=== PATIENT | male | born 1970 | race Caucasian/White ===

== ENCOUNTER 2019-12-04 07:22 | Emergency (ER) | payer SELFPAY ==
[~2019-12-04] VITALS: Ht 170.2 cm; Wt 90.5 kg
[2019-12-04] MEDS ORDERED: IV NORMAL SALINE 1,000ML 1,000 ML IV ONE (07:30)
[2019-12-04] MEDS ORDERED: ASPIRIN 325 MG TABLET PO ONE (07:30)
--- NOTE | 2019-12-04 07:36 | PHYS DOC ---
Past History Past Medical History: CT Past Surgical History: No Surgical History Smoking: Non-smoker Alcohol Use: None Drug Use: Marijuana General Adult EDM: Chief Complaint: SOA HPI: HPI: 49-year-old male presents with report of waking this morning with shortness of air and chest pressure. Reports radiation to his back. Reports has had a similar episode 6 days ago which self resolved. Reports his spouse became concerned and made him present to the ER for further evaluation. Patient does report cardiac risk factors of prior CT (denies stent placement) and significant family history of CAD. Denies fever or chills. Denies cough. Denies pleuritic pain. Denies leg swelling or calf tenderness. Denies history or family history of PE/DVT. Denies trauma. Denies known exposure to COVID-19. Review of Systems: Review of Systems: Constitutional: Denies fever or chills Eyes: Denies redness or eye pain HENT: Denies nasal congestion or sore throat Respiratory: Denies cough; reports shortness of breath Cardiovascular: Reports chest pain; denies palpitations GI: Denies abdominal pain, nausea, or vomiting : Denies dysuria or hematuria Musculoskeletal: Denies back pain or joint pain Integument: Denies rash or skin lesions Neurologic: Denies headache, focal weakness or sensory changes Complete systems were reviewed and found to be within normal limits, except as documented in this note. Heart Score: HEART Score for Chest Pain: HEART Score for Chest Pain Response (Comments) Value History Moderately Suspicious 1 ECG Normal 0 Age >45 - < 65 1 Risk Factors 1 or 2 Risk Factors 1 Troponin < Normal Limit 0 Total 3 Risk Factors: Risk Factors: DM, Current or recent (<one month) smoker, HTN, HLP, family history of CAD, obesity. Risk Scores: Score 0 - 3: 2.5% MACE over next 6 weeks - Discharge Home Score 4 - 6: 20.3% MACE over next 6 weeks - Admit for Clinical Observation Score 7 - 10: 72.7% MACE over next 6 weeks - Early Invasive Strategies Current Medications: Current Meds: Current Medications Medications (Trade) Dose Ordered Sig/Sergio Start Time Stop Time Status Last Admin Dose Admin Aspirin (Pa Aspirin) 325 mg 1X ONCE 12/04/19 07:30 12/04/19 07:31 UNV Sodium Chloride 1,000 ml @ 1,000 mls/hr 1X ONCE 12/04/19 07:30 12/04/19 08:29 UNV Physical Exam: PE: Constitutional: Well developed, well nourished, no acute distress, non-toxic appearance HENT: Normocephalic, atraumatic Eyes: Conjunctiva normal, no discharge Neck: Normal range of motion, no tenderness, supple Lungs & Thorax: No respiratory distress, equal chest rise and fall Abdomen: Soft, no tenderness Skin: Warm, dry, no erythema, no rash Extremities: No tenderness, ROM intact, no edema Neurologic: Alert and oriented X 3, no focal deficits noted Psychologic: Affect normal, judgment normal EKG: EKG: @0732 NSR at 67bpm, J point elevation II and aVF, no ST depressions, Q wave II and aVF. Radiology/Procedures: Radiology/Procedures: PROCEDURE: CHEST PA & LATERAL Chest radiograph 12/04/2019 8:45 AM INDICATION: Chest pain COMPARISON: None available TECHNIQUE: Frontal and lateral views of the chest are provided. FINDINGS: The cardiomediastinal silhouette is within normal limits. There are no pleural effusions. There is no pulmonary vascular congestion. There is no pneumothorax. The lungs are clear. No significant osseous abnormality is identified. IMPRESSION: No acute cardiopulmonary process. Electronically signed by: Melissa Anderson MD (12/04/2019 10:00 AM) [id number] Course & Med Decision Making: Course & Med Decision Making Pertinent Labs and Imaging studies reviewed. (See chart for details) Patient presents with shortness of breath and chest pain which started this morning. Reports some cardiac risk factors of family history and prior CT. EKG stable. Aspirin provided. Labs obtained and posted to chart. Initial troponin negative. D-dimer also WNL. HEART score 3 CXR without acute process. Denies any further chest pain. Repeat troponin also WNL. Patient stable for discharge with outpatient follow-up with PCP/cardiology. Cardiology referral provided. Discussed findings and plan with patient, who acknowledge understanding and agreement. Sun Disclaimer: Sun Disclaimer: This electronic medical record was generated, in whole or in part, using a voice recognition dictation system. Departure Departure: Impression: Primary Impression: Chest pain Qualified Codes: R07.9 - Chest pain, unspecified Disposition: 01 HOME/RESIDENCE PRIOR TO ADM Condition: STABLE Referrals: [facility] (PCP) JORGE GRIER MD Patient Instructions: Chest Pain (Nonspecific), [id number] Scripts Famotidine (PEPCID) 20 Mg Tablet 1 TAB PO BID for gastritis, #20 TAB Prov: JULIO MASSEY DO 12/04/19 Justification of Admission: Justification of Admission: Justification of Admission Dx: N/A JULIO MASSEY DO Dec 04, 2019 07:36
--- NOTE | 2019-12-04 07:43 | EKG ---
[address] [address] Test Date: 2019-12-04 Test Time: 07:32:44 Pat Name: LOWELL DORSEY Department: Room: Gender: M Metal [employer]: : 1970 Requested By: JULIO MASSEY Order Number: [id number] Reading MD: Woody Garnett MD Measurements Intervals [place]aly Rate: 67 P: 0 ID: [id number] QRS: 53 QRSD: 84 T: 34 QT: 392 QTc: 417 Interpretive Statements SINUS RHYTHM Electronically Signed On 12-05-2019 11:23:14 CDT by Woody Garnett MD
[2019-12-04] MEDS ORDERED: FAMOTIDINE 20 MG/2 ML VIAL IVP ONE (07:45)
[2019-12-04 08:07] LABS: BASO % 1 % (0-3); EOS # 0.1 x10^3/uL (0.0-0.7); EOS % 3 % (0-3); HEMATOCRIT 42.9 % (39.0-53.0); HEMOGLOBIN 15.3 g/dL (13.0-17.5); LYMPH # 1.1 x10^3/uL (1.0-4.8); LYMPH % 25 % (24-48); MEAN CORPUSCULAR HEMOGLOBIN 34 pg (25-35); MEAN CORPUSCULAR HGB CONC 36 g/dL (31-37); MEAN CORPUSCULAR VOLUME 95 fL (79-100); MONO # 0.5 x10^3/uL (0.0-1.1); MONO % 12 % (0-9); NEUT # 2.6 x10^3uL (1.8-7.7); NEUT % 59 % (31-73); PLATELET COUNT 186 x10^3/uL (140-400); RED BLOOD COUNT 4.55 x10^6/uL (4.30-5.70); RED CELL DISTRIBUTION WIDTH 13.8 % (11.5-14.5); WHITE BLOOD COUNT 4.4 x10^3/uL (4.0-11.0)
[2019-12-04 08:18] LABS: CALCIUM 8.7 mg/dL (8.5-10.1); CREATININE 1.2 mg/dL (0.7-1.3); GFR 63.8; POTASSIUM 3.5 mmol/L (3.5-5.1)
[2019-12-04 08:47] LABS: ALBUMIN 3.7 g/dL (3.4-5.0); ALBUMIN/GLOBULIN RATIO 1.1 (1.0-1.7); MAGNESIUM 2.2 mg/dL (1.8-2.4); TOTAL BILIRUBIN 0.9 mg/dL (0.2-1.0)
--- NOTE | 2019-12-04 10:03 | RAD ---
Chest radiograph 12/04/2019 8:45 AM INDICATION: Chest pain COMPARISON: None available TECHNIQUE: Frontal and lateral views of the chest are provided. FINDINGS: The cardiomediastinal silhouette is within normal limits. There are no pleural effusions. There is no pulmonary vascular congestion. There is no pneumothorax. The lungs are clear. No significant osseous abnormality is identified. IMPRESSION: No acute cardiopulmonary process. Electronically signed by: Melissa Anderson MD (12/04/2019 10:00 AM) [id number]
[2019-12-04] MEDS ORDERED: FAMO-63 PO (10:07)
[2019-12-04 11:18] VITALS: BP 110/72
== END 2019-12-04 11:24 | disposition home or self-care (01) ==
LOC: ER 07:22
DX: R07.89 Other chest pain (principal); R06.02 Shortness of breath; I25.2 Old myocardial infarction; F12.90 Cannabis use, unspecified, uncomplicated
CPT/HCPCS: 36415; 71046; 80053; 82553; 83605; 83690; 83735; 83880; 84484; 85025; 85379; 85610; 85730; 93005; 96374; 99285; J3490; J7030